=== PATIENT | male | born 1990 | race Caucasian/White ===

== ENCOUNTER 2016-12-19 15:54 | Inpatient (IN) | payer SELFPAY ==
[~2016-12-19] VITALS: Ht 177.8 cm; Wt 65.8 kg
[2016-12-19] VITALS (7 sets, daily range): BP systolic 100–134; BP diastolic 63–79
--- NOTE | 2016-12-19 16:19 | EKG ---
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
[2016-12-19 16:21] LABS: BASO # 0.1 x10^3/uL (0.0-0.2); BASO % 1 % (0-3); EOS % 0 % (0-3); HEMATOCRIT 44.1 % (39.0-53.0); HEMOGLOBIN 14.8 g/dL (13.0-17.5); LYMPH # 1.2 x10^3/uL (1.0-4.8); LYMPH % 8 % (24-48); MEAN CORPUSCULAR HEMOGLOBIN 30 pg (25-35); MEAN CORPUSCULAR HGB CONC 33 g/dL (31-37); MEAN CORPUSCULAR VOLUME 89 fL (79-100); MONO % 6 % (0-9); NEUT % 85 % (31-73); PLATELET COUNT 409 x10^3/uL (140-400); RED BLOOD COUNT 4.97 x10^6/uL (4.30-5.70); RED CELL DISTRIBUTION WIDTH 13.6 % (11.5-14.5); WHITE BLOOD COUNT 15.2 x10^3/uL (4.0-11.0)
[2016-12-19] MEDS ORDERED: IV NORMAL SALINE 1000ML BAG 1,000 ML IV SCH (16:30)
[2016-12-19] MEDS ORDERED: LORAZEPAM 2 MG/ML VIAL IV ONE ×4 (16:30→18:15)
[2016-12-19] MEDS ORDERED: CHARCOAL AQUA 25 GM/120 ML SUSPENSION. PO ONE (16:30)
[2016-12-19 16:34] LABS: CALCIUM 9.2 mg/dL (8.5-10.1); POTASSIUM 3.6 mmol/L (3.5-5.1)
[2016-12-19 16:40] LABS: ETHANOL < 10 mg/dL (0-10)
--- NOTE | 2016-12-19 17:41 | PHYS DOC ---
Past Medical History Past Medical History: Other Additional Past Medical Histor: drug abuse Past Surgical History: No Surgical History Smoking: Cigarettes Alcohol Use: None Drug Use: Marijuana, Methamphetamine Adult General Chief Complaint Chief Complaint: OVERDOSE HPI HPI Patient is a 26 year old male who presents by EMS in police custody for acute methamphetamine ingestion and agitation. He swallowed approximately 4 g of crystal methamphetamine prior to being arrested by police. He now has anxiety, restlessness, and agitation. He denies chest pain, headache, vision changes, numbness, tingling, weakness, nausea or vomiting, abdominal pain, injury. Review of Systems Review of Systems Constitutional: Denies fever or chills [] Eyes: Denies change in visual acuity, redness, or eye pain [] HENT: Denies nasal congestion or sore throat [] Respiratory: Denies cough or shortness of breath [] Cardiovascular: No additional information not addressed in HPI [] GI: Denies abdominal pain, nausea, vomiting, bloody stools or diarrhea [] : Denies dysuria or hematuria [] Musculoskeletal: Denies back pain or joint pain [] Integument: Denies rash or skin lesions [] Neurologic: Denies headache, focal weakness or sensory changes [] Endocrine: Denies polyuria or polydipsia [] Current Medications Current Medications Current Medications Medications (Trade) Dose Ordered Sig/Stephanie Start Time Stop Time Status Last Admin Dose Admin Charcoal (Actidose-Aqua) 25 gm 1X ONCE 12/19/16 16:30 12/19/16 16:31 DC 12/19/16 16:57 25 GM Lorazepam (Ativan) 2 mg 1X ONCE 12/19/16 17:00 12/19/16 17:01 DC 12/19/16 17:27 2 MG Sodium Chloride (Iv Sodium Chloride 0.9% 1000ml Bag) 1,000 ml @ 1,000 mls/hr Q1H 12/19/16 16:30 12/19/16 17:29 DC 12/19/16 16:30 1,000 MLS/HR Allergies Allergies Allergies Coded Allergies Type Severity Reaction Last Updated Verified No Known Drug Allergies 12/19/16 No Physical Exam Physical Exam Constitutional: Well developed, well nourished, moderate distress, non-toxic appearance. [] HENT: Normocephalic, atraumatic, bilateral external ears normal, oropharynx moist, no oral exudates, nose normal. [] Eyes: PERRLA, EOMI, conjunctiva normal, no discharge. [] Neck: Normal range of motion, no tenderness, supple. [] Cardiovascular: Regular tachycardia [] Lungs & Thorax: Bilateral breath sounds clear to auscultation [] Abdomen: Bowel sounds normal, soft, no tenderness. [] Skin: Warm, moist, no erythema, no rash. [] Back: No tenderness, no CVA tenderness. [] Extremities: No tenderness, ROM intact, no edema. [] Neurologic: Alert and oriented X 3, normal motor function, normal sensory function, no focal deficits noted. Writhing in the bed with tremors [] Psychologic: Affect normal, judgement normal, mood normal. [] Current Patient Data Vital Signs Vital Signs Date Time Temp Pulse Resp B/P Pulse Ox O2 Delivery O2 Flow Rate FiO2 12/19/16 15:58 99.0 139 27 145/81 99 Room Air 99.0 Lab Values Laboratory Tests Test 12/19/16 16:01 White Blood Count 15.2x10^3/uL (4.0-11.0) H Red Blood Count 4.97x10^6/uL (4.30-5.70) Hemoglobin 14.8g/dL (13.0-17.5) Hematocrit 44.1% (39.0-53.0) Mean Corpuscular Volume 89fL (79-100) Mean Corpuscular Hemoglobin 30pg (25-35) Mean Corpuscular Hemoglobin Concent 33g/dL (31-37) Red Cell Distribution Width 13.6% (11.5-14.5) Platelet Count 409x10^3/uL (140-400) H Neutrophils (%) (Auto) 85% (31-73) H Lymphocytes (%) (Auto) 8% (24-48) L Monocytes (%) (Auto) 6% (0-9) Eosinophils (%) (Auto) 0% (0-3) Basophils (%) (Auto) 1% (0-3) Neutrophils # (Auto) 13.0x10^3uL (1.8-7.7) H Lymphocytes # (Auto) 1.2x10^3/uL (1.0-4.8) Monocytes # (Auto) 0.9x10^3/uL (0.0-1.1) Eosinophils # (Auto) 0.0x10^3/uL (0.0-0.7) Basophils # (Auto) 0.1x10^3/uL (0.0-0.2) Platelet Estimate Pending Sodium Level 143mmol/L (136-145) Potassium Level 3.6mmol/L (3.5-5.1) Chloride Level 105mmol/L (98-107) Carbon Dioxide Level 28mmol/L (21-32) Anion Gap 10 (6-14) Blood Urea Nitrogen 10mg/dL (8-26) Creatinine 1.0mg/dL (0.7-1.3) Estimated GFR (Cockcroft-Gault) 89.0 Glucose Level 109mg/dL (70-99) H Calcium Level 9.2mg/dL (8.5-10.1) Salicylates Level < 2.8mg/dL (2.8-20.0) L Salicylate Last Dose Date Unknown Salicylate Last Dose Time Unknown Acetaminophen Level < 2mcg/ml (10-30) L Acetaminophen Last Dose Date Unknown Acetaminophen Last Dose Time Unknown Ethyl Alcohol Level < 10mg/dL (0-10) Laboratory Tests 12/19/16 16:01 Laboratory Tests 12/19/16 16:01 EKG EKG EKG as interpreted by me as sinus tachycardia, rate 141, no ST-T changes, no ectopy Course & Med Decision Making Course & Med Decision Making Pertinent Labs and Imaging studies reviewed. (See chart for details) He has signs and symptoms of severe methamphetamine intoxication. He has required multiple doses of benzodiazepines to control symptoms of tachycardia, tremors, agitation. He has followed commands and been cooperative throughout examination. Will admit patient to the ICU due to frequent need of benzodiazepine medications and close monitoring. Discussed case with Dr. Alejandre , who will admit. Dragon Disclaimer Dragon Disclaimer This electronic medical record was generated, in whole or in part, using a voice recognition dictation system. Departure Departure Impression: Primary Impression: Amphetamine overdose Disposition: ADMITTED INPATIENT Condition: CRITICAL Referrals: NO PCP (PCP) Problem Qualifiers Primary Impression: Amphetamine overdose Encounter type: initial encounter Injury intent: accidental or unintentional Qualified Code: T43.621A - Poisoning by amphetamines, accidental (unintentional), initial encounter Real BOYLE MD Dec 19, 2016 17:41
--- NOTE | 2016-12-19 17:57 | PDOC1 ---
History and Physical Date of Admission Date of Admission DATE: 12/19/16 TIME: 17:52 Identification/Chief Complaint Chief Complaint methamphetamine OD Source Source: Caregiver, Chart review, Patient History of Present Illness History of Present Illness 26 y.o male with multiple tatooes, was resisting arrest by the police in the field and instead swallowed the 4 bags of crystal meth he had on possession, pt then brought to ER, visibly shaking, tachycardic, confused somewhat and is admitted to icu for intox, Salicylates, ASA and etoh levels all neg, but pt visibly shaking, no fevers yet, guards at bedside, Got 2 mgs iV ativan, no resolve.pt will be admitted to ICU NO family at bedside Past Medical History Cardiovascular: No pertinent hx Pulmonary: No pertinent hx GI: No pertinent hx Heme/Onc: No pertinent hx Hepatobiliary: No pertinent hx Psych: No pertinent hx Rheumatologic: No pertinent hx Infectious disease: No pertinent hx ENT: No pertinent hx Renal/: No pertinent hx Endocrine: No pertinent hx Dermatology: No pertinent hx Past Surgical History Past Surgical History: No pertinent history Family History Family History: Family History Unknown Social History Smoke: No ALCOHOL: occassional Drugs: Crystal meth Current Problem List Problem List Problems Medical Problems: (1) Amphetamine overdose Status: Acute (2) Overdose Status: Acute Problems: Current Medications Current Medications Current Medications Sodium Chloride (Iv Sodium Chloride 0.9% 1000ml Bag) 1,000 ml @ 1,000 mls/hr Q1H IV Last administered on 12/19/16 16:30; Start 12/19/16 at 16:30; Stop at 17:29; Status DC Lorazepam (Ativan) 2 mg 1X ONCE IV Last administered on 12/19/16 16:57; Start 12/19/16 at 16:30; Stop 12/19/16 at 16:31; Status DC Charcoal (Actidose-Aqua) 25 gm 1X ONCE PO Last administered on 12/19/16 16:57 ; Start 12/19/16 at 16:30; Stop 12/19/16 at 16:31; Status DC Lorazepam (Ativan) 2 mg 1X ONCE IV Last administered on 12/19/16 17:27; Start 12/19/16 at 17:00; Stop 12/19/16 at 17:01; Status DC Lorazepam (Ativan) 2 mg 1X ONCE IV Last administered on 12/19/16t 17:49; Start 12/19/16 at 17:30; Stop 12/19/16 at 17:31; Status DC Allergies Allergies: Coded Allergies: No Known Drug Allergies (Unverified , 12/19/16) ROS Review of System unable to obtain - pt unable to cooperate - visibly shaking Physical Exam General: No acute distress, Other (visibly shaking) Lungs: Clear to auscultation Heart: S1S2, other (sinus tachy) Breasts: Normal, Rt breast nml w/o mass, Lt breast nml w/o mass, Nipples normal Abdomen: Normal bowel sounds, Soft, No tenderness, No hepatosplenomegaly, No masses Male Genitals Exam: normal genitalia, normal prostate Extremities: Other (multiple tattoes) Skin: No rashes, No breakdown, No significant lesion Neuro: Normal gait, Normal speech, Strength at 5/5 X4 ext, Normal tone, Sensation intact, Cranial nerves 3-12 NL, Reflexes 2+ Vitals Vitals Vital Signs Date Time Temp Pulse Resp B/P Pulse Ox O2 Delivery O2 Flow Rate FiO2 12/19/16 15:58 99.0 139 27 145/81 99 Room Air 99.0 Labs Labs Laboratory Tests Test 12/19/16 16:01 White Blood Count 15.2x10^3/uL (4.0-11.0) Red Blood Count 4.97x10^6/uL (4.30-5.70) Hemoglobin 14.8g/dL (13.0-17.5) Hematocrit 44.1% (39.0-53.0) Mean Corpuscular Volume 89fL (79-100) Mean Corpuscular Hemoglobin 30pg (25-35) Mean Corpuscular Hemoglobin Concent 33g/dL (31-37) Red Cell Distribution Width 13.6% (11.5-14.5) Platelet Count 409x10^3/uL (140-400) Neutrophils (%) (Auto) 85% (31-73) Lymphocytes (%) (Auto) 8% (24-48) Monocytes (%) (Auto) 6% (0-9) Eosinophils (%) (Auto) 0% (0-3) Basophils (%) (Auto) 1% (0-3) Neutrophils # (Auto) 13.0x10^3uL (1.8-7.7) Lymphocytes # (Auto) 1.2x10^3/uL (1.0-4.8) Monocytes # (Auto) 0.9x10^3/uL (0.0-1.1) Eosinophils # (Auto) 0.0x10^3/uL (0.0-0.7) Basophils # (Auto) 0.1x10^3/uL (0.0-0.2) Sodium Level 143mmol/L (136-145) Potassium Level 3.6mmol/L (3.5-5.1) Chloride Level 105mmol/L (98-107) Carbon Dioxide Level 28mmol/L (21-32) Anion Gap 10 (6-14) Blood Urea Nitrogen 10mg/dL (8-26) Creatinine 1.0mg/dL (0.7-1.3) Estimated GFR (Cockcroft-Gault) 89.0 Glucose Level 109mg/dL (70-99) Calcium Level 9.2mg/dL (8.5-10.1) Salicylates Level < 2.8mg/dL (2.8-20.0) Salicylate Last Dose Date Unknown Salicylate Last Dose Time Unknown Acetaminophen Level < 2mcg/ml (10-30) Acetaminophen Last Dose Date Unknown Acetaminophen Last Dose Time Unknown Ethyl Alcohol Level < 10mg/dL (0-10) Laboratory Tests Test 12/19/16 16:01 White Blood Count 15.2x10^3/uL (4.0-11.0) Red Blood Count 4.97x10^6/uL (4.30-5.70) Hemoglobin 14.8g/dL (13.0-17.5) Hematocrit 44.1% (39.0-53.0) Mean Corpuscular Volume 89fL (79-100) Mean Corpuscular Hemoglobin 30pg (25-35) Mean Corpuscular Hemoglobin Concent 33g/dL (31-37) Red Cell Distribution Width 13.6% (11.5-14.5) Platelet Count 409x10^3/uL (140-400) Neutrophils (%) (Auto) 85% (31-73) Lymphocytes (%) (Auto) 8% (24-48) Monocytes (%) (Auto) 6% (0-9) Eosinophils (%) (Auto) 0% (0-3) Basophils (%) (Auto) 1% (0-3) Neutrophils # (Auto) 13.0x10^3uL (1.8-7.7) Lymphocytes # (Auto) 1.2x10^3/uL (1.0-4.8) Monocytes # (Auto) 0.9x10^3/uL (0.0-1.1) Eosinophils # (Auto) 0.0x10^3/uL (0.0-0.7) Basophils # (Auto) 0.1x10^3/uL (0.0-0.2) Sodium Level 143mmol/L (136-145) Potassium Level 3.6mmol/L (3.5-5.1) Chloride Level 105mmol/L (98-107) Carbon Dioxide Level 28mmol/L (21-32) Anion Gap 10 (6-14) Blood Urea Nitrogen 10mg/dL (8-26) Creatinine 1.0mg/dL (0.7-1.3) Estimated GFR (Cockcroft-Gault) 89.0 Glucose Level 109mg/dL (70-99) Calcium Level 9.2mg/dL (8.5-10.1) Salicylates Level < 2.8mg/dL (2.8-20.0) Salicylate Last Dose Date Unknown Salicylate Last Dose Time Unknown Acetaminophen Level < 2mcg/ml (10-30) Acetaminophen Last Dose Date Unknown Acetaminophen Last Dose Time Unknown Ethyl Alcohol Level < 10mg/dL (0-10) VTE Prophylaxis Ordered VTE Prophylaxis Devices: Yes VTE Pharmacological Prophylaxi: Yes Assessment/Plan Assessment/Plan 1. Crystal meth ingestion in an effort to resist arrest 2. toxic metabolic enceph sec to above 3. Reactive leukocytosis Plan: ADmit ICU NPO for now IVF 100cc/hr Inc ativan to 4 mgs iV q2 prn Tylenol prn for fevers DVT prophy PPI while NPO Will start diet when not too much shaking and less confused Dw ER and pt and guards MOnitor leukocytosis SINDHU PIERRE MD Dec 19, 2016 17:57
[2016-12-19] MEDS ORDERED: KETOROLAC 15 MG/ML VIAL. IV PRN (18:00)
[2016-12-19] MEDS ORDERED: LACTULOSE 20 GM/30 ML SOLUTION. PO PRN (18:00)
[2016-12-19] MEDS ORDERED: MORPHINE SULFATE 2 MG/ML DISP.SYRIN. IV PRN (18:00)
[2016-12-19] MEDS ORDERED: PROCHLORPERAZINE 10 MG/2 ML VIAL. IV PRN (18:00)
[2016-12-19] MEDS ORDERED: ACETAMINOPHEN 500 MG TABLET PO PRN (18:00)
[2016-12-19] MEDS ORDERED: ONDANSETRON PF 4 MG/2 ML VIAL. IV PRN (18:00)
[2016-12-19] MEDS ORDERED: OXYCODONE/APAP 5/325 TABLET. PO PRN (18:00)
[2016-12-19] MEDS ORDERED: BISACODYL 10 MG SUPP.RECT PR PRN (18:00)
[2016-12-19] MEDS ORDERED: MAGNESIUM HYDROXIDE 2,400 MG/30 ML ORAL.SUSP. PO PRN (18:00)
[2016-12-19] MEDS ORDERED: PROCHLORPERAZINE 25 MG SUPP.RECT. PR PRN (18:00)
[2016-12-19] MEDS ORDERED: ZOLPIDEM 5 MG TABLET. PO PRN (18:00)
[2016-12-19] MEDS: LORAZEPAM 2 MG/ML VIAL IV PRN (18:08)
[2016-12-19 19:23] LABS: PLT ESTIMATE ADEQUATE (ADEQUATE)
[2016-12-19 19:58] LABS: BARBITURATES NEG (NEG); BENZODIAZEPINES NEG (NEG); CANNABINOIDS POS (NEG); COCAINE NEG (NEG); METHADONE NEG (NEG); OPIATES NEG (NEG); PHENCYCLIDINE NEG (NEG)
[2016-12-19 19:59] LABS: ETHANOL, URINE NEG (NEG)
[2016-12-19] MEDS: IV 1/2 NORMAL SALINE 1,000 ML IV SCH (20:47)
[2016-12-19] MEDS: DOCUSATE SODIUM 100 MG CAPSULE PO SCH (21:00)
[2016-12-19] MEDS ORDERED: INFLUENZA VAX SCREEN BY RX. MC ONE (21:45)
[2016-12-19] MEDS ORDERED: PNEUMOCOCCAL VAX SCREEN BY RX. MC ONE (21:45)
[2016-12-20] VITALS (17 sets, daily range): BP systolic 98–138; BP diastolic 50–87
[2016-12-20 06:03] LABS: BASO % 0 % (0-3); EOS % 0 % (0-3); HEMOGLOBIN 13.5 g/dL (13.0-17.5); LYMPH # 2.1 x10^3/uL (1.0-4.8); LYMPH % 24 % (24-48); MEAN CORPUSCULAR HEMOGLOBIN 30 pg (25-35); MEAN CORPUSCULAR HGB CONC 33 g/dL (31-37); MEAN CORPUSCULAR VOLUME 90 fL (79-100); MONO % 8 % (0-9); NEUT % 68 % (31-73); PLATELET COUNT 360 x10^3/uL (140-400); RED BLOOD COUNT 4.57 x10^6/uL (4.30-5.70); RED CELL DISTRIBUTION WIDTH 13.4 % (11.5-14.5); WHITE BLOOD COUNT 8.7 x10^3/uL (4.0-11.0)
[2016-12-20 06:19] LABS: CALCIUM 8.9 mg/dL (8.5-10.1); CREATININE 0.8 mg/dL (0.7-1.3); GFR 115.1; POTASSIUM 3.8 mmol/L (3.5-5.1)
[2016-12-20 06:23] LABS: PHOSPHORUS 3.4 mg/dL (2.6-4.7)
--- NOTE | 2016-12-20 07:50 | RAD ---
CT of the head without contrast, 12/19/2016: History: Head lump an abrasion The ventricles are within normal limits in size. There is no shift of the midline structures. There is no evidence of acute intracranial hemorrhage or mass effect. The bone windows show no evidence of a fracture. There appears to be scalp swelling in the high right frontal region, incompletely included on these scans. IMPRESSION: No acute intracranial abnormality is detected. PQRS Compliance Statement: One or more of the following individualized dose reduction techniques were utilized for this examination: 1. Automated exposure control 2. Adjustment of the mA and/or kV according to patient size 3. Use of iterative reconstruction technique
[2016-12-20] MEDS: IV 1/2 NORMAL SALINE 1,000 ML IV SCH ×3 (07:52→19:41)
[2016-12-20] MEDS: DOCUSATE SODIUM 100 MG CAPSULE PO SCH ×2 (08:03→20:23)
[2016-12-20] MEDS: ENOXAPARIN 40 MG/0.4 ML DISP.SYRIN. SQ SCH ×2 (08:03→17:04)
[2016-12-20] MEDS ORDERED: PNEUMOC CONJ VACC 23-VALENT 0.5 ML VIAL. VAX IM ONE (09:00)
[2016-12-20] MEDS ORDERED: FLU VACC QUAD 2016-17 (36MOS+)/PF 0.5 ML SYRINGE. VAX IM ONE (09:00)
[2016-12-20] MEDS: LORAZEPAM 2 MG/ML VIAL IV PRN ×2 (14:16→18:21)
--- NOTE | 2016-12-20 14:33 | PDOC ---
PROGRESS NOTES Chief Complaint Chief Complaint 1. Crystal meth ingestion in an effort to resist arrest 2. toxic metabolic enceph sec to above 3. Reactive leukocytosis Plan: REGULAR diet IVF 1/2 NS 100cc/hr Inc ativan to 4 mgs iV q2 prn Tylenol prn for fevers DVT prophy PPI while NPO Will start diet when not too much shaking and less confused Dw ER mD and pt and guards MOnitor leukocytosis should be ok to dc tmr to long-term History of Present Illness History of Present Illness tachycardia otherwise feels ok Vitals Vitals Vital Signs Date Time Temp Pulse Resp B/P Pulse Ox O2 Delivery O2 Flow Rate FiO2 12/20/16 13:00 115 22 124/75 Room Air 12/20/16 12:00 98.6 98 98.6 Physical Exam General: No acute distress, Other (visibly shaking) Heart: Regular rate, Normal S1 Lungs: Clear Abdomen: Normal bowel sounds, Soft, No tenderness, No hepatosplenomegaly, No masses Extremities: Other (multiple tattoes) Skin: No rashes, No breakdown, No significant lesion Labs LABS Laboratory Tests Test 12/19/16 16:01 12/19/16 19:32 12/19/16 20:00 12/20/16 05:00 White Blood Count 15.2x10^3/uL (4.0-11.0) 8.7x10^3/uL (4.0-11.0) Red Blood Count 4.97x10^6/uL (4.30-5.70) 4.57x10^6/uL (4.30-5.70) Hemoglobin 14.8g/dL (13.0-17.5) 13.5g/dL (13.0-17.5) Hematocrit 44.1% (39.0-53.0) 41.0% (39.0-53.0) Mean Corpuscular Volume 89fL (79-100) 90fL (79-100) Mean Corpuscular Hemoglobin 30pg (25-35) 30pg (25-35) Mean Corpuscular Hemoglobin Concent 33g/dL (31-37) 33g/dL (31-37) Red Cell Distribution Width 13.6% (11.5-14.5) 13.4% (11.5-14.5) Platelet Count 409x10^3/uL (140-400) 360x10^3/uL (140-400) Neutrophils (%) (Auto) 85% (31-73) 68% (31-73) Lymphocytes (%) (Auto) 8% (24-48) 24% (24-48) Monocytes (%) (Auto) 6% (0-9) 8% (0-9) Eosinophils (%) (Auto) 0% (0-3) 0% (0-3) Basophils (%) (Auto) 1% (0-3) 0% (0-3) Neutrophils # (Auto) 13.0x10^3uL (1.8-7.7) 5.9x10^3uL (1.8-7.7) Lymphocytes # (Auto) 1.2x10^3/uL (1.0-4.8) 2.1x10^3/uL (1.0-4.8) Monocytes # (Auto) 0.9x10^3/uL (0.0-1.1) 0.7x10^3/uL (0.0-1.1) Eosinophils # (Auto) 0.0x10^3/uL (0.0-0.7) 0.0x10^3/uL (0.0-0.7) Basophils # (Auto) 0.1x10^3/uL (0.0-0.2) 0.0x10^3/uL (0.0-0.2) Segmented Neutrophils % 88% (35-66) Band Neutrophils % 1% (0-9) Lymphocytes % 8% (24-48) Monocytes % 3% (0-10) Platelet Estimate Adequate (ADEQUATE) Sodium Level 143mmol/L (136-145) 140mmol/L (136-145) Potassium Level 3.6mmol/L (3.5-5.1) 3.8mmol/L (3.5-5.1) Chloride Level 105mmol/L (98-107) 105mmol/L (98-107) Carbon Dioxide Level 28mmol/L (21-32) 24mmol/L (21-32) Anion Gap 10 (6-14) 11 (6-14) Blood Urea Nitrogen 10mg/dL (8-26) 6mg/dL (8-26) Creatinine 1.0mg/dL (0.7-1.3) 0.8mg/dL (0.7-1.3) Estimated GFR (Cockcroft-Gault) 89.0 115.1 Glucose Level 109mg/dL (70-99) 90mg/dL (70-99) Calcium Level 9.2mg/dL (8.5-10.1) 8.9mg/dL (8.5-10.1) Salicylates Level < 2.8mg/dL (2.8-20.0) Salicylate Last Dose Date Unknown Salicylate Last Dose Time Unknown Acetaminophen Level < 2mcg/ml (10-30) Acetaminophen Last Dose Date Unknown Acetaminophen Last Dose Time Unknown Ethyl Alcohol Level < 10mg/dL (0-10) Urine Opiates Screen Neg (NEG) Urine Methadone Screen Neg (NEG) Urine Barbiturates Neg (NEG) Urine Phencyclidine Screen Neg (NEG) Urine Amphetamine/Methamphetamine Pos (NEG) Urine Benzodiazepines Screen Neg (NEG) Urine Cocaine Screen Neg (NEG) Urine Cannabinoids Screen Pos (NEG) Urine Ethyl Alcohol Neg (NEG) Nasal Screen MRSA (PCR) Negative (Negative) Phosphorus Level 3.4mg/dL (2.6-4.7) Magnesium Level 2.0mg/dL (1.8-2.4) Review of Systems Review of Systems no fever, chills, sob or chest pain Assessment and Plan Assessmemt and Plan Problems Medical Problems: (1) Amphetamine overdose Status: Acute (2) Overdose Status: Acute Problems: Comment Review of Relevant I have reviewed the following items lesley (where applicable) has been applied. Labs Laboratory Tests Test 12/19/16 16:01 12/19/16 19:32 12/19/16 20:00 12/20/16 05:00 White Blood Count 15.2x10^3/uL (4.0-11.0) 8.7x10^3/uL (4.0-11.0) Red Blood Count 4.97x10^6/uL (4.30-5.70) 4.57x10^6/uL (4.30-5.70) Hemoglobin 14.8g/dL (13.0-17.5) 13.5g/dL (13.0-17.5) Hematocrit 44.1% (39.0-53.0) 41.0% (39.0-53.0) Mean Corpuscular Volume 89fL (79-100) 90fL (79-100) Mean Corpuscular Hemoglobin 30pg (25-35) 30pg (25-35) Mean Corpuscular Hemoglobin Concent 33g/dL (31-37) 33g/dL (31-37) Red Cell Distribution Width 13.6% (11.5-14.5) 13.4% (11.5-14.5) Platelet Count 409x10^3/uL (140-400) 360x10^3/uL (140-400) Neutrophils (%) (Auto) 85% (31-73) 68% (31-73) Lymphocytes (%) (Auto) 8% (24-48) 24% (24-48) Monocytes (%) (Auto) 6% (0-9) 8% (0-9) Eosinophils (%) (Auto) 0% (0-3) 0% (0-3) Basophils (%) (Auto) 1% (0-3) 0% (0-3) Neutrophils # (Auto) 13.0x10^3uL (1.8-7.7) 5.9x10^3uL (1.8-7.7) Lymphocytes # (Auto) 1.2x10^3/uL (1.0-4.8) 2.1x10^3/uL (1.0-4.8) Monocytes # (Auto) 0.9x10^3/uL (0.0-1.1) 0.7x10^3/uL (0.0-1.1) Eosinophils # (Auto) 0.0x10^3/uL (0.0-0.7) 0.0x10^3/uL (0.0-0.7) Basophils # (Auto) 0.1x10^3/uL (0.0-0.2) 0.0x10^3/uL (0.0-0.2) Segmented Neutrophils % 88% (35-66) Band Neutrophils % 1% (0-9) Lymphocytes % 8% (24-48) Monocytes % 3% (0-10) Platelet Estimate Adequate (ADEQUATE) Sodium Level 143mmol/L (136-145) 140mmol/L (136-145) Potassium Level 3.6mmol/L (3.5-5.1) 3.8mmol/L (3.5-5.1) Chloride Level 105mmol/L (98-107) 105mmol/L (98-107) Carbon Dioxide Level 28mmol/L (21-32) 24mmol/L (21-32) Anion Gap 10 (6-14) 11 (6-14) Blood Urea Nitrogen 10mg/dL (8-26) 6mg/dL (8-26) Creatinine 1.0mg/dL (0.7-1.3) 0.8mg/dL (0.7-1.3) Estimated GFR (Cockcroft-Gault) 89.0 115.1 Glucose Level 109mg/dL (70-99) 90mg/dL (70-99) Calcium Level 9.2mg/dL (8.5-10.1) 8.9mg/dL (8.5-10.1) Salicylates Level < 2.8mg/dL (2.8-20.0) Salicylate Last Dose Date Unknown Salicylate Last Dose Time Unknown Acetaminophen Level < 2mcg/ml (10-30) Acetaminophen Last Dose Date Unknown Acetaminophen Last Dose Time Unknown Ethyl Alcohol Level < 10mg/dL (0-10) Urine Opiates Screen Neg (NEG) Urine Methadone Screen Neg (NEG) Urine Barbiturates Neg (NEG) Urine Phencyclidine Screen Neg (NEG) Urine Amphetamine/Methamphetamine Pos (NEG) Urine Benzodiazepines Screen Neg (NEG) Urine Cocaine Screen Neg (NEG) Urine Cannabinoids Screen Pos (NEG) Urine Ethyl Alcohol Neg (NEG) Nasal Screen MRSA (PCR) Negative (Negative) Phosphorus Level 3.4mg/dL (2.6-4.7) Magnesium Level 2.0mg/dL (1.8-2.4) Laboratory Tests Test 12/19/16 16:01 12/19/16 19:32 12/19/16 20:00 12/20/16 05:00 White Blood Count 15.2x10^3/uL (4.0-11.0) 8.7x10^3/uL (4.0-11.0) Red Blood Count 4.97x10^6/uL (4.30-5.70) 4.57x10^6/uL (4.30-5.70) Hemoglobin 14.8g/dL (13.0-17.5) 13.5g/dL (13.0-17.5) Hematocrit 44.1% (39.0-53.0) 41.0% (39.0-53.0) Mean Corpuscular Volume 89fL (79-100) 90fL (79-100) Mean Corpuscular Hemoglobin 30pg (25-35) 30pg (25-35) Mean Corpuscular Hemoglobin Concent 33g/dL (31-37) 33g/dL (31-37) Red Cell Distribution Width 13.6% (11.5-14.5) 13.4% (11.5-14.5) Platelet Count 409x10^3/uL (140-400) 360x10^3/uL (140-400) Neutrophils (%) (Auto) 85% (31-73) 68% (31-73) Lymphocytes (%) (Auto) 8% (24-48) 24% (24-48) Monocytes (%) (Auto) 6% (0-9) 8% (0-9) Eosinophils (%) (Auto) 0% (0-3) 0% (0-3) Basophils (%) (Auto) 1% (0-3) 0% (0-3) Neutrophils # (Auto) 13.0x10^3uL (1.8-7.7) 5.9x10^3uL (1.8-7.7) Lymphocytes # (Auto) 1.2x10^3/uL (1.0-4.8) 2.1x10^3/uL (1.0-4.8) Monocytes # (Auto) 0.9x10^3/uL (0.0-1.1) 0.7x10^3/uL (0.0-1.1) Eosinophils # (Auto) 0.0x10^3/uL (0.0-0.7) 0.0x10^3/uL (0.0-0.7) Basophils # (Auto) 0.1x10^3/uL (0.0-0.2) 0.0x10^3/uL (0.0-0.2) Segmented Neutrophils % 88% (35-66) Band Neutrophils % 1% (0-9) Lymphocytes % 8% (24-48) Monocytes % 3% (0-10) Platelet Estimate Adequate (ADEQUATE) Sodium Level 143mmol/L (136-145) 140mmol/L (136-145) Potassium Level 3.6mmol/L (3.5-5.1) 3.8mmol/L (3.5-5.1) Chloride Level 105mmol/L (98-107) 105mmol/L (98-107) Carbon Dioxide Level 28mmol/L (21-32) 24mmol/L (21-32) Anion Gap 10 (6-14) 11 (6-14) Blood Urea Nitrogen 10mg/dL (8-26) 6mg/dL (8-26) Creatinine 1.0mg/dL (0.7-1.3) 0.8mg/dL (0.7-1.3) Estimated GFR (Cockcroft-Gault) 89.0 115.1 Glucose Level 109mg/dL (70-99) 90mg/dL (70-99) Calcium Level 9.2mg/dL (8.5-10.1) 8.9mg/dL (8.5-10.1) Salicylates Level < 2.8mg/dL (2.8-20.0) Salicylate Last Dose Date Unknown Salicylate Last Dose Time Unknown Acetaminophen Level < 2mcg/ml (10-30) Acetaminophen Last Dose Date Unknown Acetaminophen Last Dose Time Unknown Ethyl Alcohol Level < 10mg/dL (0-10) Urine Opiates Screen Neg (NEG) Urine Methadone Screen Neg (NEG) Urine Barbiturates Neg (NEG) Urine Phencyclidine Screen Neg (NEG) Urine Amphetamine/Methamphetamine Pos (NEG) Urine Benzodiazepines Screen Neg (NEG) Urine Cocaine Screen Neg (NEG) Urine Cannabinoids Screen Pos (NEG) Urine Ethyl Alcohol Neg (NEG) Nasal Screen MRSA (PCR) Negative (Negative) Phosphorus Level 3.4mg/dL (2.6-4.7) Magnesium Level 2.0mg/dL (1.8-2.4) Medications Current Medications Sodium Chloride (Iv Sodium Chloride 0.9% 1000ml Bag) 1,000 ml @ 1,000 mls/hr Q1H IV Last administered on 2/27/17at 16:30; Start 12/19/16 at 16:30; Stop at 17:29; Status DC Lorazepam (Ativan) 2 mg 1X ONCE IV Last administered on 12/19/16 16:57; Start 12/19/16 at 16:30; Stop 12/19/16 at 16:31; Status DC Charcoal (Actidose-Aqua) 25 gm 1X ONCE PO Last administered on 12/19/16 16:57 ; Start 12/19/16 at 16:30; Stop 12/19/16 at 16:31; Status DC Lorazepam (Ativan) 2 mg 1X ONCE IV Last administered on 12/19/16 17:27; Start 12/19/16 at 17:00; Stop 12/19/16 at 17:01; Status DC Lorazepam 2 mg 2 mg 1X ONCE IV Last administered on 12/19/16 17:49; Start at 17:30; Stop 12/19/16 at 17:31; Status DC Sodium Chloride (Iv Sodium Chloride 0.45%) 1,000 ml @ 100 mls/hr Q10H IV Last administered on 12/20/16 12:59; Start 12/19/16 at 17:49 Ondansetron HCl (Zofran) 4 mg PRN Q6HRS PRN IV NAUSEA/VOMITING; Start 12/19/16 at 18:00 Prochlorperazine Edisylate (Compazine) 10 mg PRN Q6HRS PRN IV NAUSEA/VOMITING; Start 12/19/16 at 18:00 Prochlorperazine (Compazine) 25 mg PRN Q12HR PRN [place] NAUSEA/VOMITING; Start at 18:00 Zolpidem Tartrate (Ambien) 5 mg PRN QHS PRN PO INSOMNIA, MAY REPEAT IN 1HR; Start 12/19/16 at 18:00 Morphine Sulfate 2 mg PRN Q2HR PRN IV PAIN; Start 12/19/16 at 18:00 Oxycodone/ Acetaminophen (Percocet 5/325) 1 tab PRN Q4HRS PRN PO MILD PAIN, 2ND CHOICE; Start 12/19/16 at 18:00 Ketorolac Tromethamine (Toradol) 15 mg PRN Q6HRS PRN IV PAIN; Start 12/19/16 at 18:00; Stop 12/24/16 at 17:59 Docusate Sodium (Colace) 100 mg BID PO Last administered on 12/20/16 08:03; Start 12/19/16 at 21:00 Magnesium Hydroxide (Milk Of Magnesia) 2,400 mg PRN Q12HR PRN PO CONSTIPATION; Start 12/19/16 at 18:00 Lactulose 20 gm PRN Q12HR PRN PO CONSTIPATION; Start 12/19/16 at 18:00 Bisacodyl (Dulcolax Supp) 10 mg PRN DAILY PRN [place] CONSTIPATION; Start 12/19/16 at 18:00 Enoxaparin Sodium (Lovenox 40mg Syringe) 40 mg Q24H SQ Last administered on 08:03; Start 12/19/16 at 18:00 Lorazepam (Ativan) 4 mg PRN Q2HRS PRN IV ANXIETY / AGITATION Last administered on 12/20/16 14:16; Start 12/19/16 at 18:00 Acetaminophen (Tylenol) 500 mg PRN Q6HRS PRN PO fevers; Start 12/19/16 at 18:00 Lorazepam (Ativan) 4 mg 1X ONCE IV Last administered on 12/19/16 18:30; Start 12/19/16 at 18:15; Stop 12/19/16 at 18:19; Status DC Info (Do NOT chart on this placeholder) 1 each 1X ONCE MC ; Start 12/19/16 at 21:45; Stop 12/19/16 at 21:46; Status UNV Pneumococcal Polyvalent Vaccine (Do NOT chart on this placeholder) 1 each 1X ONCE MC ; Start 12/19/16 at 21:45; Stop 12/19/16 at 21:46; Status UNV Influenza Virus Vaccine Quadrival (Fluarix Quad [id number] Syringe) 0.5 ml ONCE ONCE VAX IM ; Start 12/20/16 at 09:00; Stop 12/20/16 at 09:01; Status DC Pneumococcal Polyvalent Vaccine (Pneumovax 23) 0.5 ml ONCE ONCE VAX IM ; Start 12/20/16 at 09:00; Stop 12/20/16 at 09:01; Status DC Vitals/I & O Vital Sign - Last 24 Hours 12/19/16 12/19/16 12/19/16 12/19/16 15:54 15:58 16:06 16:21 Temp 99.0 99.0 Pulse 140 139 134 128 Resp B/P 145/81 145/81 145/80 132/71 Pulse Ox 98 99 99 99 O2 Delivery Room Air 12/19/16 12/19/16 12/19/16 12/19/16 16:36 16:51 17:06 18:35 Pulse 126 128 134 116 Resp B/P 136/75 137/78 139/98 118/62 Pulse Ox 99 98 97 92 12/19/16 12/19/16 12/19/16 12/19/16 20:00 20:05 20:20 20:42 Temp 98.2 98.2 Pulse 109 110 112 Resp B/P 134/79 102/63 100/64 Pulse Ox 96 96 96 O2 Delivery Room Air Room Air Room Air Room Air 12/19/16 12/19/16 12/19/16 12/19/16 21:00 21:30 22:00 23:00 Pulse 112 112 112 110 Resp 19 B/P 111/69 111/65 115/69 118/72 Pulse Ox 97 97 97 97 O2 Delivery Room Air Room Air Room Air Room Air 12/20/16 12/20/16 12/20/16 12/20/16 00:00 00:00 01:00 02:00 Temp 98.2 98.2 Pulse 109 110 108 Resp 18 B/P 120/77 108/54 111/50 Pulse Ox 94 96 96 O2 Delivery Room Air Room Air Room Air Room Air 12/20/16 12/20/16 12/20/16 12/20/16 03:00 04:00 04:00 05:00 Temp 97.1 97.1 Pulse 106 108 108 Resp 19 B/P 123/78 103/74 118/72 Pulse Ox 96 98 97 O2 Delivery Room Air Room Air Room Air Room Air 12/20/16 12/20/16 12/20/16 12/20/16 06:00 07:00 08:00 08:00 Temp 98.1 98.1 Pulse 111 104 112 Resp B/P 133/82 98/64 136/87 Pulse Ox 98 96 97 O2 Delivery Room Air Room Air Room Air Room Air 12/20/16 12/20/16 12/20/16 12/20/16 09:00 10:00 11:00 12:00 Temp 98.6 98.6 Pulse 116 123 117 113 Resp 20 20 26 13 B/P 138/82 115/75 127/87 133/73 Pulse Ox 95 97 97 98 O2 Delivery Room Air Room Air Room Air Room Air 12/20/16 13:00 Pulse 115 Resp 22 B/P 124/75 O2 Delivery Room Air Intake and Output 12/19/16 12/19/16 12/20/16 15:00 23:00 07:00 Intake Total 1000 ml 830 ml Output Total 0 ml 0 ml Balance 1000 ml 830 ml MAYA MORILLO MD Dec 20, 2016 14:33
--- NOTE | 2016-12-20 20:41 | ACF ---
Admission Forms Criteria DRUG INGESTION OR OVERDOSE Clinical Indications for Admission to Inpatient Care ( Place 'X' for any and all applicable criteria): Admission is indicated for severe toxicity as indicated by ANY ONE of the following(1)(2)(3)(4)(5)(6): [X]I. Inpatient admission required rather than observation care (Also use Drug Ingestion or Overdose: Observation Care guideline as appropriate) because of ANY ONE of the following: [ ]a) Altered mental status that is severe or persistent [X]b) Clinical finding (eg, metabolic acidosis, hypoglycemia, bradycardia) that is severe or persistent [ ]c) Toxic drug level that is persistent [ ]d) Psychiatric risk status not acceptable for outpatient management [ ]e) Continuous intravenous infusion of anticoagulation, platelet inhibitor, vasoactive, or antiarrhythmic medication (15)(16) [ ]f) Other condition, treatment or monitoring requiring inpatient admission [ ]II. Respiratory abnormalities [ ]III. Specific finding indicating severe and likely prolonged drug toxicity [ ]IV. Hemodynamic instability [ ]V. Dangerous arrhythmia [ ]. Hypertension requiring inpatient treatment Extended stay beyond goal length of stay may be needed for (4): [ ]a) Neurologic or respiratory compromise [ ]b) Hemodynamic instability [ ]c) Persistent toxic drug levels (25) [ ]d) Severe drug toxicities or complications [ ]e) Ongoing antidote treatment (eg, acetaminophen overdose)(5) [ ]f) Older patients(65 years or older) The original [facility] content created by [employer] has been revised. The portions of the content which have been revised are identified through the use of italic text or in bold, and [facility] has neither reviewed nor approved the modified material. All other unmodified content is copyright [facility]. Please see references footnoted in the original [facility] edition 2016 Admission Criteria Met?: Yes GLYNN URIBE Dec 20, 2016 20:41
[2016-12-21 03:36] VITALS: BP 129/88
[2016-12-21] MEDS: IV 1/2 NORMAL SALINE 1,000 ML IV SCH (04:48)
[2016-12-21 07:00] VITALS: BP 118/80
[2016-12-21 07:21] LABS: CALCIUM 9.3 mg/dL (8.5-10.1); CREATININE 0.8 mg/dL (0.7-1.3); GFR 115.1; POTASSIUM 4.5 mmol/L (3.5-5.1)
[2016-12-21 07:30] LABS: BASO % 1 % (0-3); EOS % 1 % (0-3); HEMOGLOBIN 14.6 g/dL (13.0-17.5); LYMPH # 1.9 x10^3/uL (1.0-4.8); LYMPH % 34 % (24-48); MEAN CORPUSCULAR HEMOGLOBIN 30 pg (25-35); MEAN CORPUSCULAR HGB CONC 33 g/dL (31-37); MEAN CORPUSCULAR VOLUME 90 fL (79-100); MONO % 9 % (0-9); NEUT % 55 % (31-73); PLATELET COUNT 368 x10^3/uL (140-400); RED BLOOD COUNT 4.92 x10^6/uL (4.30-5.70); RED CELL DISTRIBUTION WIDTH 13.8 % (11.5-14.5); WHITE BLOOD COUNT 5.7 x10^3/uL (4.0-11.0)
[2016-12-21] MEDS: DOCUSATE SODIUM 100 MG CAPSULE PO SCH (09:00)
[2016-12-21 11:00] VITALS: BP 114/91
--- NOTE | 2016-12-21 15:04 | PDOC3 ---
Discharge Summary* Admitting Diagnosis Problems Medical Problems: (1) Amphetamine overdose Status: Acute (2) Overdose Status: Acute Final Diagnosis 1. Crystal meth ingestion in an effort to resist arrest 2. . Reactive leukocytosis Brief Hospital Course Mr. Muller is a 26 old male was admitted for ingestion of crystal meth, he was treated symptomatically, with iv hydration, clinically he didn't show any symptoms during his stay. Today he is hemodynamically stable, denies any complaints, deemed stable to go [facility] and follow up wit PCP. EXAM GENERAL: No apparent distress. Alert and oriented. HEENT: Head normocephalic, atraumatic. NECK: Supple LUNGS: Clear to auscultation. HEART: RRR, S1, S2 present, pulses intact ABDOMEN: Soft, positive bowel sounds. Disposition/Orders: Other (GROUP HOME) No Active Prescriptions or Reported Meds Time Spent Total time spent with patient 31 minutes for coordination of care, counseling, and education. YUMI NI MD Dec 21, 2016 15:04
== END 2016-12-21 14:00 | DRG 917 ==
LOC: EEVIPCON 15:54 → ER 15:54 → 1 WEST ICU 17:00 → 5 SOUTH 12-20 13:55
PROVIDERS: ADMIT Internal Medicine; ATTEND Internal Medicine
DX: T43.621A Poisoning by amphetamines, accidental (unintentional), initial encounter (principal); G92 Toxic encephalopathy; F17.210 Nicotine dependence, cigarettes, uncomplicated; F12.90 Cannabis use, unspecified, uncomplicated; D72.828 Other elevated white blood cell count; F41.9 Anxiety disorder, unspecified; Z79.899 Other long term (current) drug therapy
CPT/HCPCS: 36415; 70450; 80048; 83735; 84100; 85007; 85027; 87641; 93005; 96361; 96374; 96376; G0480; G0481; G6038; J1650; J2060; J7030; 80196; 99285-25